=== PATIENT | male | born 1965 | race Caucasian/White ===

== ENCOUNTER 2021-02-20 12:05 | Emergency (ER) | payer SELFPAY ==
[2021-02-20 12:38] LABS: HEMATOCRIT 52.6 % (39.0-50.0); HEMOGLOBIN 17.6 g/dl (14.0-18.0); IMMATURE GRANULOCYTES 2.5 % (0.0-5.0); MEAN CELL VOLUME 87.4 fL CALC (80.0-100.0); MEAN CORPUSCULAR HGB 29.2 pG CALC (26.0-32.0); MEAN CORPUSCULAR HGB CONC 33.5 g/dL CAL (32.0-36.0); NEUT# 3.16 thou/uL (1.82-7.42); RED BLOOD COUNT 6.02 mill/uL (4.70-6.10); RED CELL DISTRI WIDTH 11.8 % (11.5-15.5)
[2021-02-20 12:57] LABS: ALBUMIN 4.4 g/dL (3.2-5.0); ALKALINE PHOSPHATASE 87 u/l (38-126); ANION GAP 18 (6-22 (CALC)); BILIRUBIN, TOTAL 0.7 mg/dL (0.0-1.4); BUN 12 mg/dL (9-20); BUN/CREATININE RATIO 15 (12-20 (CALC)); CARBON DIOXIDE 23 mmol/l (22-30); CHLORIDE 105 mmol/l (95-108); CREATININE 0.8 mg/dL (0.7-1.3); GFR > 60 ML/MIN (>=60 (CALC)); GFR FOR AFR.AMER. > 60 ML/MIN (>=60 (CALC)); POTASSIUM 4.4 mmol/l (3.5-5.1); SGOT/AST 31 u/l (17-59); SODIUM 141 mmol/l (137-146); TOTAL PROTEIN 7.6 g/dL (6.3-8.2)
[2021-02-20 15:13] VITALS: BP 106/65
[2021-02-20] MEDS ORDERED: EPIPEN 2-P0.3 MG/0.3 IM (15:58)
[2021-02-20] MEDS ORDERED: PREDNISONE50 MG PO (15:58)
== END 2021-02-20 16:10 | disposition home or self-care (01) | DRG 916 ==
LOC: ED 12:05
PROVIDERS: Family Medicine
DX: T78.2XXA Anaphylactic shock, unspecified, initial encounter (principal); T63.451A Toxic effect of venom of hornets, accidental (unintentional), initial encounter; Z20.822 Contact with and (suspected) exposure to COVID-19

== ENCOUNTER 2023-01-27 20:28 | Emergency (ER) | payer MEDICAID ==
[~2023-01-27] VITALS: Ht 180.3 cm; Wt 68.0 kg
[~2023-01-27 20:28] MED LIST: EPIPEN 2-P0.3 MG/0.3 IM; PREDNISONE50 MG PO
[2023-01-27 20:47] VITALS: BP 130/82
[2023-01-27 21:00] VITALS: BP 107/78
[2023-01-27 21:15] VITALS: BP 103/77
[2023-01-27] MEDS ORDERED: LORTAB 1010 MG PO (21:26)
[2023-01-27] MEDS ORDERED: BACTRIM DS1 TAB PO (21:26)
[2023-01-27] MEDS ORDERED: KEFLEX500 MG PO (21:26)
[2023-01-27 21:31] VITALS: BP 114/76
[2023-01-27 21:35] VITALS: BP 114/76
--- NOTE | 2023-01-30 15:00 | NUR ---
Attempted to contact pt via phone regarding wound culture results and need to change therapy. No answer, left voicemail to return call to Pharmacy department.
== END 2023-01-27 21:38 | disposition home or self-care (01) ==
LOC: ED 20:28
DX: L02.511 Cutaneous abscess of right hand (principal)